=== PATIENT | female | born 1940 | race Caucasian/White ===

== ENCOUNTER 2019-06-19 08:53 | Outpatient (CLI) | payer MEDICARE ==
[2019-06-19] MEDS ORDERED: Iopamidol 370 76% 100 ML VIAL ONE (09:00)
--- NOTE | 2019-06-19 11:56 | CT ---
CT ABDOMEN AND PELVIS WITH ORAL AND IV CONTRAST: Date: 06/19/19 HISTORY: Right lower quadrant abdominal pain. FINDINGS: There are no previous exams for comparison. The lung bases are clear. The patient is post cholecystectomy. There is mild fatty infiltration of th e liver. No hepatic mass is seen. The spleen, pancreas, adrenal glands, and left kidney are normal. A small cyst is noted in the right kidney. No free air, free fluid, or lymphadenopathy seen in the abdomen or pelvis. The small bowel loops are not abnormally dilated. There is fecal material in the colon. There is a cy stic mass in the right lower quadrant causing mass effect on the cecal apex. This measures 2.7 x 2.7 x 2.0 cm. A normal appendix is not visualized. Uterus is present. There are vascular calcifications without evidence of aneurysmal dilatation of the abdominal aorta. A circumaortic left renal vein is present. There are degenerative changes in the sp ine. IMPRESSION: Cystic mass in the right lower quadrant. Differential diagnosis includes cystic neoplasm of the appen elise or ovary versus mucocele of the appendix. POS: MIHIR
== END 2019-06-19 08:54 | disposition home or self-care (01) ==
LOC: NAV CT 08:53
PROVIDERS: ATTEND Family Medicine
DX: R10.31 Right lower quadrant pain (principal); R10.11 Right upper quadrant pain; R19.7 Diarrhea, unspecified; R63.4 Abnormal weight loss; R19.03 Right lower quadrant abdominal swelling, mass and lump
CPT/HCPCS: 74177; Q9967

== ENCOUNTER 2019-06-25 11:52 | Outpatient (CLI) | payer MEDICARE ==
--- NOTE | 2019-06-25 13:46 | ULT ---
EXAM: Pelvic ultrasound HISTORY: Cystic mass in the right lower quadrant of the abdomen. COMPARISON: CT abdomen/pelvis 06/19/2019 TECHNIQUE: Multiple grayscale and color Doppler images were obtained in a transabdominal pelvic ultra sound. Spectral analysis of the Doppler waveforms of the ovaries were performed. FINDINGS: CERVIX: No evidence of nabothian cysts. UTERUS: Normal in size without focal abnormality. ENDOMETRIAL STRIPE: 2 mm. No free fluid is seen in the pelvis. RIGHT OVARY: Normal flow without focal mass. LEFT OVARY: Normal flow without focal mass. In the right lower quadrant of the abdomen, separate from the ovary, there is a well-circumscribed an echoic cyst measuring 2.0 cm in diameter and 3.4 cm in length. IMPRESSION: Nonspecific fluid collection in the right upper quadrant of the abdomen. This is separate from the ovary and cannot be definitely connected to the cecum.
== END 2019-06-25 11:53 | disposition home or self-care (01) ==
LOC: NAV ULT 11:52
PROVIDERS: ATTEND Family Medicine
DX: N83.9 Noninflammatory disorder of ovary, fallopian tube and broad ligament, unspecified (principal)
CPT/HCPCS: 76856